=== PATIENT | female | born 1995 | race American Indian/Alaskan Native ===

== ENCOUNTER 2016-04-08 13:04 | Emergency (ER) | payer SELFPAY ==
--- NOTE | 2016-04-08 17:20 | Emergency Department Report ---
Chief Complaint: Vaginal Bleeding Stated Complaint: STOMACH PAIN/VOMTING/CONSTIPATION/VAG BLEEDING Time Seen by Provider: 04/08/16 17:14 - HPI History of Present Illness: Patient here reports that she's been having vaginal bleeding for 10 days. She says she was on her period on 03/14/2016 and then she started back 03/30/2016. She says she is using 4 pads a day and she is passing some clots. Denies taking control pills. Abdominal pain is 10 out of 10 and feels sharp. Reports nausea and vomiting. She says she thinks she is constipated. She hasn' t had a bowel movement for 3 days. Denies any fever or chills. Denies any urinary burning frequency or urgency. - ROS Review of Systems: All systems are negative unless stated in HPI above. - Exam Vital Signs: Vital Signs 04/08/16 14:35 Temperature 98.3 F Pulse Rate 88 Respiratory 16 Rate Blood Pressure 111/72 O2 Sat by Pulse 98 Oximetry Physical Exam: General: This is a 20-year-old female well-nourished well-developed in no acute distress. Abdomen: Soft, tender to palpate to lower abdominal quadrants. Normal bowel sounds in all quadrants no CVA tenderness. CV: S1, S2. Reg. Rate and rhythm. MSE screening note: Focused history and physical exam performed. Due to findings the following was ordered:see mdm ED Medical Decision Making - Medical Decision Making Medical decision making: Patient seen by provider in triage area. Appropriate protocol activated and patient to main ED to be seen by physician. ED Disposition for MSE Condition: Stable
[2016-04-08 17:38] LABS: Basophils % (Auto) 0.4 % (0.0-1.8); Eosinophils % (Auto) 0.4 % (0.0-4.3); Hematocrit 36.7 % (30.3-42.9); Mean Corpuscular HGB Conc 33 % (30-34); Mean Corpuscular Hemoglobin 27 pg (28-32); Mean Corpuscular Volume 81 fl (79-97); Platelet Count 312 K/mm3 (140-440); Red Blood Count 4.51 M/mm3 (3.65-5.03); White Blood Count 10.3 K/mm3 (4.5-11.0)
[2016-04-08 17:51] LABS: Alanine Aminotransferase 15 units/L (7-56); Albumin/Globulin Ratio 1.1 %; Alkaline Phosphatase 78 units/L (35-129); Anion Gap 17 mmol/L; Bilirubin,Total < 0.2 mg/dL (0.1-1.2); Blood Urea Nitrogen 7 mg/dL (7-17); Calcium 8.9 mg/dL (8.4-10.2); Carbon Dioxide 24 mmol/L (22-30); Chloride 100.3 mmol/L (98-107); Glucose 82 mg/dL (65-100); Lipase 30 units/L (13-60); Potassium 3.9 mmol/L (3.6-5.0); Sodium 137 mmol/L (137-145); Total Protein 7.7 g/dL (6.3-8.2)
[2016-04-08 18:10] LABS: Bacteria,Urine 1+ /HPF (Negative); Bilirubin,Urine NEG (Negative); Blood,Urine MOD (Negative); Ketones,Urine NEG (Negative); Leukocyte Esterase,Urine TR (Negative); Mucus,Urine FEW /HPF; Nitrite,Urine NEG (Negative); Protein,Urine <15 mg/dL mg/dL (Negative); WBC,Urine < 1.0 /HPF (0.0-6.0)
[2016-04-08] MEDS ORDERED: TORADOL IM ONE (21:24)
[2016-04-08] MEDS ORDERED: ULTRAM PO ONE (21:24)
[2016-04-08] MEDS ORDERED: CEPHULAC PO ONE (21:24)
[2016-04-08] MEDS ORDERED: FLAGYL PO ONE (21:58)
--- NOTE | 2016-04-08 22:03 | Emergency Department Report ---
ED Female HPI - General Chief complaint: Vaginal Bleeding Stated complaint: STOMACH PAIN/VOMTING/CONSTIPATION/VAG BLEEDING Time Seen by Provider: 04/08/16 17:14 Source: patient Mode of arrival: Ambulatory Limitations: No Limitations - History of Present Illness Initial comments: 20-year-old female with no significant past medical history presents to the hospital complaints of vaginal bleeding 10 days. +4-5 pads per day. Intermittent vomiting reported. Patient complains of moderate to severe intermittent sharp lower abdominal pain. Worse with palpation. No alleviating factors. Patient is sexually active with one partner does not use condoms. No control pill use reported. Patient also states last bowel movement 3 days ago and she suffers from constipation despite eating pressure wasn't drinking water. PMD: None [employer] none - Related Data Previous Rx's Medication Instructions Recorded Last Taken Type Ibuprofen [Motrin] 600 mg PO Q8H PRN #30 tablet 04/08/16 Unknown Rx Polyethylene Glycol 3350 [Miralax 17 gm PO QDAY PRN #20 packet 04/08/16 Unknown Rx 3350] Promethazine [Phenergan TAB] 25 mg PO Q6HR PRN #20 tab 04/08/16 Unknown Rx medroxyPROGESTERone ACETATE 10 mg PO QDAY #10 tablet 04/08/16 Unknown Rx [Provera] metroNIDAZOLE [Flagyl] 500 mg PO Q12HR #14 tab 04/08/16 Unknown Rx traMADol [Ultram 50 MG tab] 50 mg PO Q6HR PRN #20 tablet 04/08/16 Unknown Rx Allergies Allergy/AdvReac Type Severity Reaction Status Date / Time No Known Allergies Allergy Unverified 04/08/16 14:34 ED Review of Systems ROS: Stated complaint: STOMACH PAIN/VOMTING/CONSTIPATION/VAG BLEEDING Other details as noted in HPI Comment: All other systems reviewed and negative Other: Constitutional: No fevers chills Eyes: No eye pain visual changes ENT: No ear pain or throat pain Neck: Denies pain Respiratory: Denies cough wheezing shortness of breath Cardiovascular: Denies chest pain, palpitations, syncope GI:as per hpi : Denies dysuria, urinary frequency, or urgency Musculoskeletal: Denies back pain, joint swelling Skin: Denies rash, lesions, erythema Neurologic: Denies headache, numbness, weakness Psychiatric: Denies suicidal ideation, hallucinations ED Past Medical Hx - Medications Home Medications: Home Medications Medication Instructions Recorded Confirmed Last Taken Type Ibuprofen [Motrin] 600 mg PO Q8H PRN #30 tablet 04/08/16 Unknown Rx Polyethylene Glycol 3350 [Miralax 17 gm PO QDAY PRN #20 packet 04/08/16 Unknown Rx 3350] Promethazine [Phenergan TAB] 25 mg PO Q6HR PRN #20 tab 04/08/16 Unknown Rx medroxyPROGESTERone ACETATE 10 mg PO QDAY #10 tablet 04/08/16 Unknown Rx [Provera] metroNIDAZOLE [Flagyl] 500 mg PO Q12HR #14 tab 04/08/16 Unknown Rx traMADol [Ultram 50 MG tab] 50 mg PO Q6HR PRN #20 tablet 04/08/16 Unknown Rx ED Physical Exam - General Limitations: No Limitations - Other Other exam information: General: No limitations, patient is alert in no acute distress Head exam: Atraumatic, normocephalic Eyes exam: Normal appearance ENT: Moist mucous membrane, normal oropharynx Neck exam: Normal inspection, full range of motion, no meningismus nontender Respiratory exam: Clear to auscultation bilateral, no wheezes, rales, crackles Cardiovascular: Normal rate and rhythm, normal heart sounds Abdomen: Soft, nondistended, suprapubic tenderness, with normal bowel sounds, no rebound, or guarding Gu: mild vag bleeding mild cmt, no adenexal tenderness Extremity: Full range of motion normal inspection no deformity Back: Normal Inspection, full range of motion, no tenderness Neurologic: Alert, oriented x3, cranial nerves intact, no motor or sensory deficit Psychiatric: normal affect, normal mood Skin: Warm, dry, intact ED Course Vital Signs 04/08/16 04/08/16 04/08/16 14:35 21:54 21:55 Temperature 98.3 F Pulse Rate 88 Respiratory 16 16 16 Rate Blood Pressure 111/72 O2 Sat by Pulse 98 Oximetry - Reevaluation(s) Reevaluation #1: 04/08/16 22:11 Patient received Toradol, tramadol, lactulose, and Flagyl in the ED 04/08/16 22:11 ED Medical Decision Making - Lab Data Result diagrams: 04/08/16 17:26 04/08/16 17:26 Lab Results 04/08/16 04/08/16 04/08/16 Range/Units 17:26 17:26 17:26 WBC 10.3 (4.5-11.0) K/mm3 RBC 4.51 (3.65-5.03) M/mm3 Hgb 12.0 (10.1-14.3) gm/dl Hct 36.7 (30.3-42.9) % MCV 81 (79-97) fl MCH 27 L (28-32) pg MCHC 33 (30-34) % RDW 16.0 H (13.2-15.2) % Plt Count 312 (140-440) K/mm3 Lymph % (Auto) 17.4 (13.4-35.0) % [place] % (Auto) 8.1 H (0.0-7.3) % Eos % (Auto) 0.4 (0.0-4.3) % Baso % (Auto) 0.4 (0.0-1.8) % Lymph # 1.8 (1.2-5.4) K/mm3 [place] # 0.8 (0.0-0.8) K/mm3 Eos # 0.0 (0.0-0.4) K/mm3 Baso # 0.0 (0.0-0.1) K/mm3 Seg Neutrophils % 73.7 H (40.0-70.0) % Seg Neutrophils # 7.6 (1.8-7.7) K/mm3 Sodium 137 (137-145) mmol/L Potassium 3.9 (3.6-5.0) mmol/L Chloride 100.3 (98-107) mmol/L Carbon Dioxide 24 (22-30) mmol/L Anion Gap 17 mmol/L BUN 7 (7-17) mg/dL Creatinine 0.7 (0.7-1.2) mg/dL Estimated GFR > 60 ml/min BUN/Creatinine Ratio 10.00 % Glucose 82 (65-100) mg/dL Calcium 8.9 (8.4-10.2) mg/dL Total Bilirubin < 0.2 (0.1-1.2) mg/dL AST 16 (5-40) units/L ALT 15 (7-56) units/L Alkaline Phosphatase 78 (35-129) units/L Total Protein 7.7 (6.3-8.2) g/dL Albumin 4.0 (3.9-5) g/dL Albumin/Globulin Ratio 1.1 % Amylase (27-131) units/L Lipase 30 (13-60) units/L HCG, Qual Negative (Negative) Urine Color (Yellow) Urine Turbidity (Clear) Urine pH (5.0-7.0) Ur Specific [place] (1.003-1.030) Urine Protein (Negative) mg/dL Urine Glucose (UA) (Negative) mg/dL Urine Ketones (Negative) mg/dL Urine Blood (Negative) Urine Nitrite (Negative) Urine Bilirubin (Negative) Urine Urobilinogen (<2.0) mg/dL Ur Leukocyte Esterase (Negative) Urine WBC (Auto) (0.0-6.0) /HPF Urine RBC (Auto) (0.0-6.0) /HPF U Epithel Cells (Auto) (0-13.0) /HPF Urine Bacteria (Auto) (Negative) /HPF Urine Mucus /HPF Blood Type Antibody Screen 04/08/16 04/08/16 04/08/16 Range/Units 17:26 17:26 17:49 WBC (4.5-11.0) K/mm3 RBC (3.65-5.03) M/mm3 Hgb (10.1-14.3) gm/dl Hct (30.3-42.9) % MCV (79-97) fl MCH (28-32) pg MCHC (30-34) % RDW (13.2-15.2) % Plt Count (140-440) K/mm3 Lymph % (Auto) (13.4-35.0) % [place] % (Auto) (0.0-7.3) % Eos % (Auto) (0.0-4.3) % Baso % (Auto) (0.0-1.8) % Lymph # (1.2-5.4) K/mm3 [place] # (0.0-0.8) K/mm3 Eos # (0.0-0.4) K/mm3 Baso # (0.0-0.1) K/mm3 Seg Neutrophils % (40.0-70.0) % Seg Neutrophils # (1.8-7.7) K/mm3 Sodium (137-145) mmol/L Potassium (3.6-5.0) mmol/L Chloride (98-107) mmol/L Carbon Dioxide (22-30) mmol/L Anion Gap mmol/L BUN (7-17) mg/dL Creatinine (0.7-1.2) mg/dL Estimated GFR ml/min BUN/Creatinine Ratio % Glucose (65-100) mg/dL Calcium (8.4-10.2) mg/dL Total Bilirubin (0.1-1.2) mg/dL AST (5-40) units/L ALT (7-56) units/L Alkaline Phosphatase (35-129) units/L Total Protein (6.3-8.2) g/dL Albumin (3.9-5) g/dL Albumin/Globulin Ratio % Amylase 79 (27-131) units/L Lipase (13-60) units/L HCG, Qual (Negative) Urine Color Yellow (Yellow) Urine Turbidity Clear (Clear) Urine pH 5.0 (5.0-7.0) Ur Specific [place] 1.021 (1.003-1.030) Urine Protein <15 mg/dl (Negative) mg/dL Urine Glucose (UA) Neg (Negative) mg/dL Urine Ketones Neg (Negative) mg/dL Urine Blood Mod (Negative) Urine Nitrite Neg (Negative) Urine Bilirubin Neg (Negative) Urine Urobilinogen 2.0 (<2.0) mg/dL Ur Leukocyte Esterase Tr (Negative) Urine WBC (Auto) < 1.0 (0.0-6.0) /HPF Urine RBC (Auto) 88.0 (0.0-6.0) /HPF U Epithel Cells (Auto) 1.0 (0-13.0) /HPF Urine Bacteria (Auto) 1+ (Negative) /HPF Urine Mucus Few /HPF Blood Type B POSITIVE Antibody Screen Negative Wet prep: less than 20 cue cells negative Trichomonas negative yeast - Medical Decision Making Patient to be treated for bacterial vaginosis and menorrhagia. Follow up for outpatient ultrasound and [employer] evaluation recommended - Differential Diagnosis vaginitis, uterine fibroids, , dysmenorrhea, anemia Critical Care Time: No Critical care attestation.: If time is entered above; I have spent that time in minutes in the direct care of this critically ill patient, excluding procedure time. ED Disposition Clinical Impression: Dysmenorrhea, Bacterial vaginosis Menorrhagia Qualifiers: Menorrahagia type: with irregular cycle Qualified Code(s): N92.1 - Excessive and frequent menstruation with irregular cycle Constipation Qualifiers: Constipation type: unspecified constipation type Qualified Code(s): K59.00 - Constipation, unspecified Disposition: DISCHARGED TO HOME OR SELFCARE Is pt being admited?: No Does the pt Need Aspirin: No Condition: Stable Instructions: Bacterial Vaginosis (ED), Constipation (ED), Dysmenorrhea (ED), Menorrhagia (ED) Additional Instructions: Take medication as prescribed. Follow up with [employer] for further workup and evaluation as to why you're having heavy and irregular menstrual cycles. The home has been prescribed will not protect against and like any hormone therapy may increase the risk of blood clots in your legs or lungs. Return if symptoms worsen. Your gonorrhea and chlamydia tests are pending and take approximately 3-4 days result. You may obtain results to medical records with a photo ID. You may also obtain results through the follow-up doctor office via medical record request. Prescriptions: Ibuprofen [Motrin] 600 mg PO Q8H PRN #30 tablet PRN Reason: Pain Polyethylene Glycol 3350 [Miralax 3350] 17 gm PO QDAY PRN #20 packet PRN Reason: Constipation Promethazine [Phenergan TAB] 25 mg PO Q6HR PRN #20 tab PRN Reason: Nausea medroxyPROGESTERone ACETATE [Provera] 10 mg PO QDAY #10 tablet metroNIDAZOLE [Flagyl] 500 mg PO Q12HR #14 tab traMADol [Ultram 50 MG tab] 50 mg PO Q6HR PRN #20 tablet PRN Reason: Pain Referrals: TOYIN STRONG MD [Staff Physician] - 3-5 Days (Hygiene Teacher ) Forms: STI Treatment and Prevention, Work/School Release Form(ED)
[2016-04-08 22:44] VITALS: BP 121/78
--- NOTE | 2016-04-10 11:02 | XRay Report ---
ABDOMEN TWO VIEWS: History: Abdominal pain. There is no evidence of free air beneath the diaphragms. The gas pattern within the abdomen is unremarkable. There is moderate stool in the colon. There is no evidence of bowel dilatation, significant air-fluid levels, or masses. The psoas margins are adequately visualized. IMPRESSION: Mild fecal retention.
== END 2016-04-08 22:10 | disposition home or self-care (01) ==
LOC: ED 13:04
DX: N92.1 Excessive and frequent menstruation with irregular cycle (principal); K59.00 Constipation, unspecified; N76.0 Acute vaginitis; N94.6 Dysmenorrhea, unspecified
CPT/HCPCS: 36415; 74020; 80053; 81001; 82150; 83690; 84703; 85025; 86850; 86900; 86901; 87210; 87591; 96372; 99284; J1885

== ENCOUNTER 2016-04-18 02:59 | Emergency (ER) | payer SELFPAY ==
[2016-04-18 05:08] LABS: Basophils % (Auto) 0.5 % (0.0-1.8); Eosinophils % (Auto) 0.1 % (0.0-4.3); Hematocrit 34.5 % (30.3-42.9); Hemoglobin 11.4 gm/dl (10.1-14.3); Mean Corpuscular HGB Conc 33 % (30-34); Mean Corpuscular Hemoglobin 26 pg (28-32); Mean Corpuscular Volume 80 fl (79-97); Platelet Count 330 K/mm3 (140-440); Red Blood Count 4.33 M/mm3 (3.65-5.03); Red Cell Distribution Width 15.7 % (13.2-15.2)
[2016-04-18 05:25] LABS: BUN/Creatinine Ratio 12.85; Blood Urea Nitrogen 9 mg/dL (7-17); Calcium 9.3 mg/dL (8.4-10.2); Carbon Dioxide 25 mmol/L (22-30); Chloride 99.4 mmol/L (98-107); Glucose 97 mg/dL (65-100); Potassium 3.7 mmol/L (3.6-5.0); Sodium 139 mmol/L (137-145)
[2016-04-18 05:26] LABS: Anion Gap 18 mmol/L
[2016-04-18 07:05] LABS: Bilirubin,Urine NEG (Negative); Blood,Urine SM (Negative); Ketones,Urine TR mg/dL (Negative); Leukocyte Esterase,Urine TR (Negative); Mucus,Urine 2+ /HPF; Nitrite,Urine NEG (Negative); Protein,Urine <15 mg/dL mg/dL (Negative); Urobilinogen,Urine < 2.0 mg/dL (<2.0)
[2016-04-18 10:39] VITALS: BP 123/77
[2016-04-18] MEDS ORDERED: TORADOL IM ONE (11:13)
--- NOTE | 2016-04-18 11:15 | Emergency Department Report ---
ED Chest Pain HPI - General Chief Complaint: Chest Pain Stated Complaint: ABD PAIN Time Seen by Provider: 04/18/16 11:03 Source: patient, EMS Mode of arrival: Stretcher Limitations: No Limitations - History of Present Illness Initial Comments: This is a 20-year-old Afro-[place] female presents to the emergency department by EMS from home with complaint of a 2 week history of midsternal and right- sided chest pain. The chest pain has been going on consistently for almost 2 weeks but 2 days ago it began as more of a sharp sensation. She denies any shortness of breath but does say that the pain worsens with breathing and certain movements. She is not taken anything for symptoms prior to presentation. She denies any past medical history including HI, CVA, PE/DVT. No primary care doctor. She denies tobacco or illicit drug use or abuse. No recent travel or sick contacts at home. Severity scale (0 -10): 6 - Related Data Previous Rx's Medication Instructions Recorded Last Taken Type Ibuprofen [Motrin] 600 mg PO Q8H PRN #30 tablet 04/08/16 Unknown Rx Polyethylene Glycol 3350 [Miralax 17 gm PO QDAY PRN #20 packet 04/08/16 Unknown Rx 3350] Promethazine [Phenergan TAB] 25 mg PO Q6HR PRN #20 tab 04/08/16 Unknown Rx medroxyPROGESTERone ACETATE 10 mg PO QDAY #10 tablet 04/08/16 Unknown Rx [Provera] metroNIDAZOLE [Flagyl] 500 mg PO Q12HR #14 tab 04/08/16 Unknown Rx traMADol [Ultram 50 MG tab] 50 mg PO Q6HR PRN #20 tablet 04/08/16 Unknown Rx Allergies Allergy/AdvReac Type Severity Reaction Status Date / Time No Known Allergies Allergy Unverified 04/08/16 14:34 HANANE score - Hanane Score Age > 65: (0) No Aspirin use within the Past 7 Days: (0) No 3 or more CAD Risk Factors: (0) No 2 or more Angina events in past 24 hrs: (0) No Known CAD with more than 50% Stenosis: (0) No Elevated Cardiac Markers: (0) No ST Deviation Greater than 0.5mm: (0) No HANANE Score: 0 ED Review of Systems ROS: Stated complaint: ABD PAIN Other details as noted in HPI Comment: All other systems reviewed and negative Constitutional: denies: chills, fever Eyes: denies: eye pain, eye discharge, vision change ENT: denies: ear pain, throat pain Respiratory: denies: cough, shortness of breath, wheezing Cardiovascular: chest pain. denies: palpitations Gastrointestinal: denies: abdominal pain, nausea, diarrhea Genitourinary: denies: urgency, dysuria, discharge Musculoskeletal: denies: back pain, joint swelling, arthralgia Skin: denies: rash, lesions Neurological: denies: headache, weakness, paresthesias ED Past Medical Hx - Past Medical History Previous Medical History?: Yes Additional medical history: Left ovary swollen - Social History Smoking Status: Never Smoker Substance Use Type: None - Medications Home Medications: Home Medications Medication Instructions Recorded Confirmed Last Taken Type Ibuprofen [Motrin] 600 mg PO Q8H PRN #30 tablet 04/08/16 Unknown Rx Polyethylene Glycol 3350 [Miralax 17 gm PO QDAY PRN #20 packet 04/08/16 Unknown Rx 3350] Promethazine [Phenergan TAB] 25 mg PO Q6HR PRN #20 tab 04/08/16 Unknown Rx medroxyPROGESTERone ACETATE 10 mg PO QDAY #10 tablet 04/08/16 Unknown Rx [Provera] metroNIDAZOLE [Flagyl] 500 mg PO Q12HR #14 tab 04/08/16 Unknown Rx traMADol [Ultram 50 MG tab] 50 mg PO Q6HR PRN #20 tablet 04/08/16 Unknown Rx ED Physical Exam - General Limitations: No Limitations - Other Other exam information: GENERAL: The patient is well-developed well-nourished. HEENT: Normocephalic. Atraumatic. Extraocular motions are intact. Patient has moist mucous membranes. NECK: Supple. Trachea is midline. CHEST/LUNGS: Clear to auscultation. There is no respiratory distress noted. Patient's chest pain is reproducible to palpation of the chest wall along the costochondral junction consistent with costochondritis. HEART/CARDIOVASCULAR: Regular. There is no tachycardia. There is no gallop rub or murmur. ABDOMEN: Abdomen is soft, nontender. Patient has normal bowel sounds. There is no abdominal distention. SKIN: There is no rash. There is no edema. There is no diaphoresis. NEURO: The patient is awake, alert, and oriented. The patient is cooperative. The patient has no focal neurologic deficits. The patient has normal speech. MUSCULOSKELETAL: There is no tenderness or deformity. There is no limitation range of motion. There is no evidence of acute injury. ED Course Vital Signs 04/18/16 04/18/16 04:31 10:38 Temperature 98.1 F Pulse Rate 77 64 Respiratory 20 16 Rate Blood Pressure 123/73 Blood Pressure 123/77 [Left] O2 Sat by Pulse 100 100 Oximetry ED Medical Decision Making - Lab Data Result diagrams: 04/18/16 04:51 04/18/16 04:51 - EKG Data -: EKG Interpreted by Me EKG shows normal: sinus rhythm, axis, intervals, QRS complexes, ST-T waves Rate: normal - EKG Data When compared to previous EKG there are: previous EKG unavailable Interpretation: normal EKG - Radiology Data Radiology results: image reviewed interpreted by me: Chest x-ray did not show any acute process. Heart is normal shape and size. No effusions. No pneumothorax. No signs of pneumonia seen. - Medical Decision Making 20-year-old female presents the emergency department with a 2 week history of right-sided chest pain. The heart and lung sounds are normal auscultation. The chest pain is completely reproducible to palpation and the patient basically jumps off the gurney when the costochondral junction is palpated. EKG is normal without ST elevation HI, ischemia or dysrhythmia. Chest x-ray does not show any acute process. Patient's labs include negative troponins 2. She is low on the well's score criteria and negative for the pulmonary embolism rule out criteria. Patient's chest pain is better explained by costochondritis. Patient has a HANANE score of 0. Patient was given a shot of Toradol and has started to get some improvement in her discomfort. She was given referrals for primary care. She will return to the ER with any worsening of her symptoms or any acute distress. - Differential Diagnosis costochondritis, HI, pneumonia, bronchitis Critical Care Time: No Critical care attestation.: If time is entered above; I have spent that time in minutes in the direct care of this critically ill patient, excluding procedure time. ED Disposition Clinical Impression: Costochondritis Chest pain Qualifiers: Chest pain type: unspecified Qualified Code(s): R07.9 - Chest pain, unspecified Disposition: DISCHARGED TO HOME OR SELFCARE Is pt being admited?: No Does the pt Need Aspirin: No Condition: Stable Instructions: Chest Pain (ED), Costochondritis (ED) Additional Instructions: Please follow-up with a primary care doctor. Return to the emergency department with any worsening of your symptoms or any acute distress. Referrals: PRIMARY MD UZMA [Primary Care Provider] - 3-5 Days ZAID SANZ MD [Staff Physician] - 3-5 Days [facility] [Outside] - 3-5 Days Time of Disposition: 11:54
--- NOTE | 2016-04-18 11:51 | XRay Report ---
PORTABLE CHEST INDICATION: Chest pain. COMPARISON: None similar. FINDINGS: Portable, frontal chest radiograph demonstrates normal cardiomediastinal silhouette. Clear lungs. Slight spinal levocurvature, possibly positional versus scoliosis. CONCLUSION: No acute chest process, as described. Thank you for the opportunity to participate in this patient's care.
== END 2016-04-18 12:00 | disposition home or self-care (01) ==
LOC: ED 02:59
DX: M94.0 Chondrocostal junction syndrome [Tietze] (principal)
CPT/HCPCS: 36415; 71010; 80048; 81001; 81025; 84484; 85025; 93005; 93010; 96372; 99285; J1885

== ENCOUNTER 2017-10-02 18:20 | Emergency (ER) | payer MEDICAID ==
[2017-10-02 18:48] VITALS: BP 114/74
--- NOTE | 2017-10-02 20:56 | Emergency Department Report ---
Upper Extremity - HPI Chief Complaint: Extremity Injury, Upper Stated Complaint: GLASS IN RIGHT PINKY FINGER Time Seen by Provider: 10/02/17 20:49 Upper Extremity: Right Little Finger Occurred When: 2 Days Severity: mild Symptoms: Yes Pain with Movement, No Deformity, No Limited Range of Movement, No Numbness, No Weakness, No Swelling, No Bruising/Ecchymosis, No Laceration or Abrasion Other History: 22-year-old female past medical history none presents with complaint of foreign body specifically a glass shard embedded in her right pinky finger. Patient states that she was reaching for something under her bed and a piece of glass fragments that are broken off from a cracked cell phone screen answered her pinky finger. Has been in there for 2 days. Patient attempted to remove it herself at home but was unsuccessful. Unknown tetanus vaccine status. Visible puncture wound with slight erythema right pinky finger between the MCP and PIP joint. ED Review of Systems ROS: Stated complaint: GLASS IN RIGHT PINKY FINGER Other details as noted in HPI Constitutional: denies: chills, fever Eyes: denies: eye pain, eye discharge, vision change ENT: denies: ear pain, throat pain Respiratory: denies: cough, shortness of breath, wheezing Cardiovascular: denies: chest pain, palpitations Endocrine: no symptoms reported Gastrointestinal: denies: abdominal pain, nausea, diarrhea Genitourinary: denies: urgency, dysuria, discharge Musculoskeletal: denies: back pain, joint swelling, arthralgia Skin: denies: rash, lesions Neurological: denies: headache, weakness, paresthesias Psychiatric: denies: anxiety, depression Hematological/Lymphatic: denies: easy bleeding, easy bruising ED Past Medical Hx - Past Medical History Previous Medical History?: Yes Additional medical history: Left ovary swollen - Surgical History Past Surgical History?: No - Social History Smoking Status: Never Smoker - Medications Home Medications: Home Medications Medication Instructions Recorded Confirmed Last Taken Type Ibuprofen [Motrin] 600 mg PO Q8H PRN #30 tablet 04/08/16 Unknown Rx Polyethylene Glycol 3350 [Miralax 17 gm PO QDAY PRN #20 packet 04/08/16 Unknown Rx 3350] Promethazine [Phenergan TAB] 25 mg PO Q6HR PRN #20 tab 04/08/16 Unknown Rx medroxyPROGESTERone ACETATE 10 mg PO QDAY #10 tablet 04/08/16 Unknown Rx [Provera] metroNIDAZOLE [Flagyl] 500 mg PO Q12HR #14 tab 04/08/16 Unknown Rx traMADol [Ultram 50 MG tab] 50 mg PO Q6HR PRN #20 tablet 04/08/16 Unknown Rx Acetaminophen/Codeine [Tylenol 1 tab PO Q6H PRN #10 tab 10/02/17 Unknown Rx /Codeine # 3 tab] Cephalexin [Keflex] 500 mg PO Q12HR #14 cap 10/02/17 Unknown Rx Ibuprofen [Motrin] 600 mg PO Q8H PRN #25 tablet 10/02/17 Unknown Rx Upper Extremity Exam - Exam General: Vital signs noted. No distress. Alert and acting appropriately. Head and Torso: No HEENT Abnormality, No Neck Tenderness, No Chest/Lungs Abnormality, No Abdominal Tenderness, No Back Tenderness Shoulder Exam: Yes Normal Range of Motion in Shoulder, No Shoulder Tenderness, No Clavicle Tenderness, No Shoulder Deformity, No AC Joint Tenderness Arm Exam: No Arm/Humerus Tenderness, No Arm Deformity Elbow: No Elbow Tenderness, No Normal Range of Motion in Elbow, No Elbow Deformity Forearm: No Forearm Tenderness, No Forearm Deformity, No Pain with Pronation, No Pain with Supination Wrist: Yes Normal ROM in Wrist, No Wrist Tenderness, No Wrist Deformity, No Snuffbox Tenderness, No Pain with Axial Thumb Compression Hand: Yes Hand Deformity, Yes Normal ROM in Digit(s), No Hand Tenderness, No Digit Tenderness, No Digit(s) Deformity, No Tendon Dysfunction CMS Exam: Yes Broken Skin (puncture wound right proximal pinky finger), Yes Normal Distal Pulses, Yes Normal Capillary Refill, Yes Normal Distal Sensation Hand L/R Front: 1 - Puncture wound here ED Course Vital Signs 10/02/17 18:44 Temperature 98.9 F Pulse Rate 90 Respiratory 18 Rate Blood Pressure 114/74 O2 Sat by Pulse 100 Oximetry - Laceration /Wound Repair Right Distal Palm Finger Wound Location: upper extremity (distal pinky finger between MCP and PIP joints) Wound Length (cm): 1 Wound's Depth, Shape: superficial Wound Explored: clean Irrigated w/ Saline (ccs): 1,000 Betadine Prep?: Yes Anesthesia: 1% Lidocaine Volume Anesthetic (ccs): 5 (digital block) Wound Debrided: minimal Wound Repaired With: sutures Suture Size/Type: 5:0, nylon Number of Sutures: 9 Layer Closure?: No Progress: Incision made to remove shard of glass which is visible on x-ray. Area infiltrated with lidocaine, digital block performed. Good local anesthesia achieved. Wound bathed with iodine and saline solution. Single 1 cm incision made to extract foreign body. Successful extraction of foreign body after probing the wound. 0.5 rectangular Cm clear shard of glass extracted. Wound then irrigated again with saline and iodine. Approximately 8 5-0 nylon sutures placed for closure of wound. Range of motion distal sensation and distal pulses and capillary refill intact pinky finger. Slight with antibiotic ointment and covered with gauze afterward. Patient given finger splint. ED Medical Decision Making - Medical Decision Making A/P: Foreign body removal right distal pinky finger 1-tetanus vaccine update it today 2-successful removal of rectangular piece of glass just as described by patient. 3-sutures placed to close wound. I advised patient to return to the ED for any fevers chills or erythema at site of wound repair. 4-Keflex twice a day 7 days 5- Motrin 800 when necessary, short course Tylenol No. 3 when necessary 6- sutures to be removed in 7-10 days Critical care attestation.: If time is entered above; I have spent that time in minutes in the direct care of this critically ill patient, excluding procedure time. ED Disposition Clinical Impression: Soft tissues foreign body, Puncture wound Disposition: TO HOME OR SELFCARE Is pt being admited?: No Does the pt Need Aspirin: No Condition: Stable Instructions: Soft Tissue Foreign Body (ED), Puncture Wound (ED), Suture Care ( ED) Additional Instructions: Sutures to be removed in 7-10 days Prescriptions: Acetaminophen/Codeine [Tylenol /Codeine # 3 tab] 1 tab PO Q6H PRN #10 tab PRN Reason: Pain , Severe (7-10) Cephalexin [Keflex] 500 mg PO Q12HR #14 cap Ibuprofen [Motrin] 600 mg PO Q8H PRN #25 tablet PRN Reason: Pain Referrals: [facility] [Provider Group] - 3-5 Days Forms: Accompanied Note, Work/School Release Form(ED) Time of Disposition: 23:28
[2017-10-02] MEDS ORDERED: BOOSTRIX IM ONE (21:05)
--- NOTE | 2017-10-02 21:26 | XRay Report ---
FINAL REPORT PROCEDURE: XR FINGER(S) 2+V RT TECHNIQUE: RIGHT hand radiographs, AP, lateral, and oblique views. CPT 17390-IE HISTORY: right hand 5th digit with injury and poss glass COMPARISON: No prior studies are available for comparison. FINDINGS: Fracture (s) and/or Dislocation(s): None . Alignment: Normal . Joint space(s): Normal . Soft tissues: Normal . Bone mineralization: Normal . Foreign bodies: An irregular radiopaque foreign body measuring 2 millimeter x 3 millimeters is noted in the lateral soft tissues of 5th proximal phalanx.. IMPRESSION: No acute bony or joint abnormality Small radiopaque foreign body in the soft tissues of 5th proximal phalanx..
[2017-10-02] MEDS ORDERED: TRIPLE ANTIBIOTIC TP ONE ×2 (23:20→23:22)
--- NOTE | 2017-10-02 23:22 | XRay Report ---
FINAL REPORT PROCEDURE: XR FINGER(S) 2+V RT TECHNIQUE: RIGHT 5th finger radiographs, including AP, lateral, and oblique views. HISTORY: locating glass COMPARISON: 10/02/2017 1923 hours FINDINGS: Fracture (s) and/or Dislocation(s): None . Alignment: Normal. Joint space(s): Normal . Bone mineralization: Normal . Foreign bodies: None . Soft tissues: Previously noted radiopaque foreign body in the soft tissues of 5th finger is no longer visualized.. IMPRESSION: Fifth finger radiopaque foreign body is no longer visualized consistent with successful removal..
[2017-10-02] MEDS ORDERED: KEFLEX ONE (23:42)
[2017-10-02] MEDS ORDERED: KEFLEX PO ONE (23:43)
== END 2017-10-02 23:45 | disposition home or self-care (01) ==
LOC: ED 18:20
DX: S61.226A Laceration with foreign body of right little finger without damage to nail, initial encounter (principal); W25.XXXA Contact with sharp glass, initial encounter; Y93.89 Activity, other specified; Y92.89 Other specified places as the place of occurrence of the external cause; Y99.8 Other external cause status
CPT/HCPCS: 90471; 90715; 99283; A6250

== ENCOUNTER 2017-12-18 12:00 | Emergency (ER) | payer SELFPAY ==
[2017-12-18 12:15] VITALS: BP 126/71
[2017-12-18] MEDS ORDERED: MOTRIN PO ONE (14:22)
--- NOTE | 2017-12-18 14:59 | Emergency Department Report ---
ED Lower Extremity HPI - General Chief Complaint: Extremity Injury, Lower Stated Complaint: LEFT BIG TOE PAIN Time Seen by Provider: 12/18/17 14:20 Source: patient Mode of arrival: Ambulatory Limitations: No Limitations - History of Present Illness Initial Comments: This is a 22-year-old female nontoxic, well nourished in appearance, no acute signs of distress presents to the ED with c/o of left toe pain x1 day. Patient stated that she hit her toe against the stair. Patient denies any other trauma. Patient denies any numbness, tingling, fever, chills, nausea, vomiting , chest pain, shortness of breath, headache, stiff neck. Patient denies any joint swelling or joint redness. Patient denies decreased range of motion. Patient stated has decreased gait due to pain. Parents denies any allergies or significant past medical history. MD Complaint: foot injury -: days(s) (1) Injury: Toes: Left Type of Injury: blunt Severity: mild Severity scale (0 -10): 8 Improves With: immobilization Worsens With: weight bearing, movement, palpation Associated Symptoms: swelling, able to partially bear weight, ambulatory. denies: snap/pop sensation, numbness, tingling, unable to bear weight - Related Data Previous Rx's Medication Instructions Recorded Last Taken Type Ibuprofen [Motrin] 600 mg PO Q8H PRN #30 tablet 04/08/16 Unknown Rx Polyethylene Glycol 3350 [Miralax 17 gm PO QDAY PRN #20 packet 04/08/16 Unknown Rx 3350] Promethazine [Phenergan TAB] 25 mg PO Q6HR PRN #20 tab 04/08/16 Unknown Rx medroxyPROGESTERone ACETATE 10 mg PO QDAY #10 tablet 04/08/16 Unknown Rx [Provera] metroNIDAZOLE [Flagyl] 500 mg PO Q12HR #14 tab 04/08/16 Unknown Rx traMADol [Ultram 50 MG tab] 50 mg PO Q6HR PRN #20 tablet 04/08/16 Unknown Rx Acetaminophen/Codeine [Tylenol 1 tab PO Q6H PRN #10 tab 10/02/17 Unknown Rx /Codeine # 3 tab] Ibuprofen [Motrin] 600 mg PO Q8H PRN #25 tablet 10/02/17 Unknown Rx cephALEXin [Keflex] 500 mg PO Q12HR #14 cap 10/02/17 Unknown Rx Ibuprofen [Motrin] 600 mg PO Q8H PRN #30 tablet 12/18/17 Unknown Rx Allergies Allergy/AdvReac Type Severity Reaction Status Date / Time No Known Allergies Allergy Unverified 04/08/16 14:34 ED Review of Systems ROS: Stated complaint: LEFT BIG TOE PAIN Other details as noted in HPI Constitutional: denies: chills, fever Eyes: denies: eye pain, eye discharge, vision change ENT: denies: ear pain, throat pain Respiratory: denies: cough, shortness of breath, wheezing Cardiovascular: denies: chest pain, palpitations Endocrine: no symptoms reported Gastrointestinal: denies: abdominal pain, nausea, diarrhea Genitourinary: denies: urgency, dysuria, discharge Musculoskeletal: denies: back pain, joint swelling, arthralgia Skin: denies: rash, lesions Neurological: denies: headache, weakness, paresthesias Psychiatric: denies: anxiety, depression Hematological/Lymphatic: denies: easy bleeding, easy bruising ED Past Medical Hx - Past Medical History Previous Medical History?: No Additional medical history: Left ovary swollen - Surgical History Past Surgical History?: No - Social History Smoking Status: Never Smoker Substance Use Type: None - Medications Home Medications: Home Medications Medication Instructions Recorded Confirmed Last Taken Type Ibuprofen [Motrin] 600 mg PO Q8H PRN #30 tablet 04/08/16 Unknown Rx Polyethylene Glycol 3350 [Miralax 17 gm PO QDAY PRN #20 packet 04/08/16 Unknown Rx 3350] Promethazine [Phenergan TAB] 25 mg PO Q6HR PRN #20 tab 04/08/16 Unknown Rx medroxyPROGESTERone ACETATE 10 mg PO QDAY #10 tablet 04/08/16 Unknown Rx [Provera] metroNIDAZOLE [Flagyl] 500 mg PO Q12HR #14 tab 04/08/16 Unknown Rx traMADol [Ultram 50 MG tab] 50 mg PO Q6HR PRN #20 tablet 04/08/16 Unknown Rx Acetaminophen/Codeine [Tylenol 1 tab PO Q6H PRN #10 tab 10/02/17 Unknown Rx /Codeine # 3 tab] Ibuprofen [Motrin] 600 mg PO Q8H PRN #25 tablet 10/02/17 Unknown Rx cephALEXin [Keflex] 500 mg PO Q12HR #14 cap 10/02/17 Unknown Rx Ibuprofen [Motrin] 600 mg PO Q8H PRN #30 tablet 12/18/17 Unknown Rx ED Physical Exam - General Limitations: No Limitations General appearance: alert, in no apparent distress - Head Head exam: Present: atraumatic, normocephalic - Eye Eye exam: Present: normal appearance - ENT ENT exam: Present: mucous membranes moist - Neck Neck exam: Present: normal inspection, full ROM. Absent: tenderness, meningismus, lymphadenopathy - Respiratory Respiratory exam: Present: normal lung sounds bilaterally. Absent: respiratory distress, wheezes - Cardiovascular Cardiovascular Exam: Present: regular rate, normal rhythm. Absent: systolic murmur, diastolic murmur, rubs, gallop - GI/Abdominal GI/Abdominal exam: Present: soft, normal bowel sounds - Extremities Exam Extremities exam: Present: normal inspection, full ROM, tenderness, normal capillary refill. Absent: joint swelling - Expanded Lower Extremity Exam Left Hip exam: Present: normal inspection, full ROM. Absent: tenderness, swelling Upper Leg exam: Present: normal inspection, full ROM. Absent: tenderness, swelling Knee exam: Present: normal inspection, full ROM. Absent: tenderness, swelling Lower Leg exam: Present: normal inspection, full ROM. Absent: tenderness, swelling Ankle exam: Present: normal inspection, full ROM. Absent: tenderness, swelling , abrasion, laceration, ecchymosis, deformity, crepidus, dislocation, erythema, anterior draw sign Foot/Toe exam: Present: normal inspection, full ROM, tenderness, swelling, ecchymosis. Absent: abrasion, laceration, deformity, crepidus, dislocation, erythema, amputation, puncture wound, foreign body, calcaneal tenderness, tenderness at base of 5th metatarsal, nail avulsion, subungual hematoma Neuro vascular tendon exam: Present: no vascular compromise. Absent: pulse deficit, abnormal cap refill, motor deficit, sensory deficit, tendon deficit, extremity cold to touch, pallor, abnormal 2-point discrimination, decreased fine /light touch, foot drop, peroneal nerve deficit, significant pain with passive ROM of distal joint Gait: Positive: observed and limited by pain - Back Exam Back exam: Present: normal inspection, full ROM - Neurological Exam Neurological exam: Present: alert, oriented X3 - Psychiatric Psychiatric exam: Present: normal affect, normal mood - Skin Skin exam: Present: warm, dry, intact, normal color. Absent: rash ED Course Vital Signs 12/18/17 12/18/17 12:12 14:29 Temperature 98.9 F Pulse Rate 94 H Respiratory 16 18 Rate Blood Pressure 126/71 O2 Sat by Pulse 100 Oximetry - Reevaluation(s) Reevaluation #1: 12/18/17 14:56 Patient is speaking in full sentences with no signs of distress noted. ED Lower Extremity MDM - Medical Decision Making This is a 22-year-old female that presents with left toe strain. Patient is stable and was examined by me. X-ray has been obtained and dictated by the radiologist. Patient is notified of the x-ray report with noted by the patient. Patient does have normal gait with no tenderness and no joint swelling. No ecchymosis. no joint redness or swelling. Not warm to touch. No signs of cellulites present. Patient received ortho shoe at discharge for pain comfort. Patient was instructed to RICE therapy. Patient received Motrin for pain. Patient is discharged with Motrin. At time of discharge, the patient does not seem toxic or ill in appearance. No acute signs of distress noted. Patient agrees to discharge treatment plan of care. No further questions noted by the patient. Critical care attestation.: If time is entered above; I have spent that time in minutes in the direct care of this critically ill patient, excluding procedure time. ED Disposition Clinical Impression: Strain of toe of left foot Qualifiers: Encounter type: initial encounter Qualified Code(s): S96.912A - Strain of unspecified muscle and tendon at ankle and foot level, left foot, initial encounter Disposition: - TO HOME OR SELFCARE Is pt being admited?: No Does the pt Need Aspirin: No Condition: Stable Instructions: RICE Therapy (ED) Additional Instructions: Follow-up with a orthopedic in 3-5 days or if symptoms worsen and continue return to emergency room as soon as possible. Prescriptions: Ibuprofen [Motrin] 600 mg PO Q8H PRN #30 tablet PRN Reason: Pain Referrals: [facility] [Primary Care Provider] - 3-5 Days ARIES MONTOYA MD [Staff Physician] - 3-5 Days [facility] [Outside] - 3-5 Days [facility] [Outside] - 3-5 Days Forms: Work/School Release Form(ED)
[2017-12-18 16:21] LABS: HCG Qualitative,Urine Negative (Negative)
--- NOTE | 2017-12-18 16:50 | XRay Report ---
FINAL REPORT PROCEDURE: Left foot. TECHNIQUE: Three views. HISTORY: left great toe pain COMPARISON: No prior studies are available for comparison. FINDINGS: The bones appear intact without fracture or dislocation. The 4th metatarsal bone is short. This could be a congenital condition. The joint spaces appear normal. The soft tissues are unremarkable. 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
== END 2017-12-18 17:07 | disposition home or self-care (01) ==
LOC: ED 12:00
DX: S96.912A Strain of unspecified muscle and tendon at ankle and foot level, left foot, initial encounter (principal); W22.01XA Walked into wall, initial encounter; Y93.K1 Activity, walking an animal; Y92.89 Other specified places as the place of occurrence of the external cause; Y99.8 Other external cause status
CPT/HCPCS: 81025